=== PATIENT | male | born 1960 | race Caucasian/White ===

== ENCOUNTER 2020-10-02 12:18 | Outpatient (CLI) | payer BC ==
[2020-10-03 13:09] LABS: SARS-CoV-2 PCR by NAA Not Detected (NotDetected)
== END 2020-10-02 12:19 | disposition home or self-care (01) ==
LOC: CSHLAB 12:18
PROVIDERS: ATTEND Surgery
DX: Z20.822 Contact with and (suspected) exposure to COVID-19 (principal)
CPT/HCPCS: 87635; U0003; U0005

== ENCOUNTER 2020-10-07 09:07 | Day surgery (SDC) | payer BC ==
[2020-10-04 09:36] VITALS: BMI 24.3
[2020-10-07] MEDS ORDERED: Lidocaine 1% MPF 2 ML VIAL ONE (09:26)
[2020-10-07] MEDS ORDERED: PROPOFOL 40 ML ONE (14:01)
[2020-10-07] MEDS ORDERED: Midazolam HCl 2 mg/2 ml Vial ONE (14:01)
[2020-10-07] MEDS ORDERED: Lidocaine 1% PF 5 ML VIAL ONE (14:01)
[2020-10-07] MEDS ORDERED: PROPOFOL 20 ML ONE (14:48)
== END 2020-10-07 15:58 | disposition home or self-care (01) ==
LOC: CSHSDC 09:07
PROVIDERS: ATTEND Surgery
PROC: 0DJD8ZZ Inspection of Lower Intestinal Tract, Via Natural or Artificial Opening Endoscopic (ICD-10-PCS; principal; 2020-10-07)
DX: Z12.11 Encounter for screening for malignant neoplasm of colon (principal); K57.30 Diverticulosis of large intestine without perforation or abscess without bleeding; Z79.899 Other long term (current) drug therapy; I10 Essential (primary) hypertension; E78.5 Hyperlipidemia, unspecified; K21.9 Gastro-esophageal reflux disease without esophagitis; F41.9 Anxiety disorder, unspecified; N40.0 Benign prostatic hyperplasia without lower urinary tract symptoms
CPT/HCPCS: J2250; J2704